=== PATIENT | female | born 1980 | race Two or more races ===

== ENCOUNTER 2021-06-02 00:06 | Emergency (ER) | payer SELFPAY ==
[~2021-06-02] VITALS: Ht 157.5 cm; Wt 59.0 kg
[2021-06-02 00:06] VITALS: BP 132/63
== END 2021-06-02 00:29 | disposition left against medical advice (07) ==
LOC: ER 00:28
DX: S61.211A Laceration without foreign body of left index finger without damage to nail, initial encounter (principal); Z53.21 Procedure and treatment not carried out due to patient leaving prior to being seen by health care provider; W26.8XXA Contact with other sharp object(s), not elsewhere classified, initial encounter; Y93.89 Activity, other specified; Y92.89 Other specified places as the place of occurrence of the external cause; Y99.8 Other external cause status